=== PATIENT | male | born 1945 | race Caucasian/White ===

== ENCOUNTER 2018-03-21 06:59 | Outpatient (CLI) | payer MEDICARE, BC | END 2018-03-21 07:00 | disposition home or self-care (01) | LOC: BICULT 06:59 | PROVIDERS: ATTEND Family Medicine | DX: R10.9 Unspecified abdominal pain (principal); K76.0 Fatty (change of) liver, not elsewhere classified | CPT/HCPCS: 76705 ==

== ENCOUNTER 2018-03-31 09:01 | Outpatient (CLI) | payer MEDICARE, BC ==
--- NOTE | 2018-03-31 11:24 | CT ---
CT ABDOMEN AND PELVIS NONCONTRAST: History: Abdominal pain. Possible diverticulitis. FINDINGS: No comparison. Each renal collecting system, ureter, and urinary bladder are decompressed without stone apparent. Lack of IV contrast limits evaluation for other abnormalities. Oral contrast was administered. No rasheed dence of bowel obstruction. Oral contrast is visible within the distal esophagus. Calcified granuloma ta of the spleen are consistent with healed granulomatous disease. Degenerative changes lumbar spine. Calcification throughout the arterial structures. Diverticula arise from the sigmoid colon without a djacent inflammation. Penile implant partially visualized. IMPRESSION: 1. Diverticulosis. No evidence of diverticulitis. 2. Gastroesophageal reflux. 3. Atherosclerosis. POS: [facility]
== END 2018-03-31 09:02 | disposition home or self-care (01) ==
LOC: CT 09:01
PROVIDERS: ATTEND Internal Medicine Gastroenterology
DX: R10.32 Left lower quadrant pain (principal); R12 Heartburn; K57.30 Diverticulosis of large intestine without perforation or abscess without bleeding; K21.9 Gastro-esophageal reflux disease without esophagitis; I70.90 Unspecified atherosclerosis
CPT/HCPCS: 74176

== ENCOUNTER 2018-04-18 07:28 | Outpatient (CLI) | payer MEDICARE, BC ==
--- NOTE | 2018-04-18 12:06 | NM ---
HEPATOBILIARY SCAN: Date: 04/18/18 HISTORY: Gastroesophageal reflux disease without esophagitis; malabsorption due to intolerance,left upper quad rant pain, abnormal weight loss. RADIOPHARMACEUTICAL: 5.2 mCi technetium-99m mebrofenin injected intravenously. FINDINGS: There is good tracer extraction by the liver with prompt excretion into the biliary tract and small b owel loops, and normal filling of the gallbladder. The calculated gallbladder ejection fraction follo wing an oral fatty meal measures 80%. IMPRESSION: Normal exam. POS: OFF
== END 2018-04-18 07:29 | disposition home or self-care (01) ==
LOC: NM 07:28
PROVIDERS: ATTEND Family Medicine
DX: K21.9 Gastro-esophageal reflux disease without esophagitis (principal); K90.49 Malabsorption due to intolerance, not elsewhere classified; R63.4 Abnormal weight loss
CPT/HCPCS: 78227; A9537

== ENCOUNTER 2019-03-23 11:08 | Outpatient (CLI) | payer MEDICARE, BC ==
--- NOTE | 2019-03-23 11:34 | RAD ---
XR Elbow Lt 2 View History: Pain Comparison: None. Findings: Large olecranon enthesophyte with overlying olecranon bursitis. 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 Evidence of old medial collateral ligamentous injury. No acute fracture or malalignment. Enthesopathic changes of the biceps tendon insertion upon the radi al tuberosity. Impression: Chronic findings with Alfreda bursitis.
== END 2019-03-23 11:09 | disposition home or self-care (01) ==
LOC: BICRAD 11:08
PROVIDERS: ATTEND Family Medicine
DX: S50.02XA Contusion of left elbow, initial encounter (principal)

== ENCOUNTER 2019-04-07 09:25 | Emergency (ER) | payer MEDICARE, BC ==
--- NOTE | 2019-04-07 10:04 | RAD ---
EXAM: Right hand: 3 views INDICATIONS: Possible foreign body COMPARISON: None. FINDINGS: Flexion deformity at the fifth PIP joint. No evidence of fracture. No soft tissue foreign b duran identified. IMPRESSION: No acute finding
[2019-04-07] MEDS ORDERED: Bacitracin 1 PK ONE (10:22)
== END 2019-04-07 10:43 | disposition home or self-care (01) ==
LOC: SCSER 09:25
DX: S61.411A Laceration without foreign body of right hand, initial encounter (principal); E11.9 Type 2 diabetes mellitus without complications; E78.1 Pure hyperglyceridemia; Z79.899 Other long term (current) drug therapy; Z79.82 Long term (current) use of aspirin; Z79.84 Long term (current) use of oral hypoglycemic drugs; W25.XXXA Contact with sharp glass, initial encounter
CPT/HCPCS: 12001